=== PATIENT | male | born 1945 | race Two or more races ===

== ENCOUNTER → 2016-06-30 | Outpatient (CLI) | payer MEDICARE ==
[2015-09-14 09:53] VITALS: BP 138/78
[~2016-06-30] MED LIST: ASPI-482 PO; ASPI81TA2 PO; ATOR20TA58 PO; CIPR500T94 PO; DIAZ5TAB PO; LOSA25TA4 PO; METO25TA9 PO; TAMS0.4C2 PO; ZOLP5TAB4 PO
--- NOTE | 2016-06-30 13:32 | KCIC ---
PROCEDURE Bilateral single view AP standing knee HISTORY Chronic bilateral knee stiffness. COMPARISON None FINDINGS Medial and lateral spaces are maintained bilaterally. No evidence of bone destruction. There are some metallic foci overlying the soft tissues of the distal right and left thigh suspicious for foreign bodies. IMPRESSION Medial and lateral joint spaces appear maintained bilaterally. Apparent metallic foreign bodies in the distal right and left thigh. Electronically signed by: Bakari Benoit MD (Jun 30, 2016 13:31:16)
== END | disposition home or self-care (01) ==
LOC: KCIC 12:26
PROVIDERS: ATTEND Physical Medicine & Rehabilitation
DX: M25.662 Stiffness of left knee, not elsewhere classified (principal); M25.661 Stiffness of right knee, not elsewhere classified
CPT/HCPCS: 73565

== ENCOUNTER → 2017-05-22 | Outpatient (CLI) | payer MEDICARE ==
[~2017-05-22] MED LIST changes: -ASPI-482 PO; -ASPI81TA2 PO; -ATOR20TA58 PO; -CIPR500T94 PO; -DIAZ5TAB PO; +IOHEXOL 240 MG/ML 50ML VIAL. PO; -LOSA25TA4 PO; -METO25TA9 PO; -TAMS0.4C2 PO; -ZOLP5TAB4 PO
[2017-05-22] MEDS: IOHEXOL 300 MG/ML 100ML VIAL. IV (11:40)
== END | disposition home or self-care (01) ==
LOC: CT 09:37
DX: I70.0 Atherosclerosis of aorta (principal); M47.896 Other spondylosis, lumbar region; M16.12 Unilateral primary osteoarthritis, left hip; I10 Essential (primary) hypertension; Z96.641 Presence of right artificial hip joint; Z87.891 Personal history of nicotine dependence
CPT/HCPCS: 74177; Q9966; Q9967

== ENCOUNTER → 2017-05-30 | Day surgery (SDC) | payer MEDICARE ==
[~2017-05-30] MED LIST changes: -IOHEXOL 240 MG/ML 50ML VIAL. PO; +LIDOCAINE 1% PF 2 ML VIAL.; +PROPOFOL 20 ML IV
[2017-05-30] MEDS: IV RINGERS,LACTATED 1000ML 1,000 ML IV ×2 (10:05)
[2017-05-30] MEDS: IPRATRPIUM/ALBUTEROL 0.5/2.5MG 3 ML NEBU. NEB ×2 (11:23)
== END | disposition home or self-care (01) ==
LOC: ENDOS 09:24
DX: K21.0 Gastro-esophageal reflux disease with esophagitis (principal); K44.9 Diaphragmatic hernia without obstruction or gangrene; E78.00 Pure hypercholesterolemia, unspecified; I10 Essential (primary) hypertension; M19.90 Unspecified osteoarthritis, unspecified site; F32.9 Major depressive disorder, single episode, unspecified; F17.200 Nicotine dependence, unspecified, uncomplicated; Z88.0 Allergy status to penicillin; Z72.89 Other problems related to lifestyle; Z98.41 Cataract extraction status, right eye; Z98.42 Cataract extraction status, left eye; Z96.641 Presence of right artificial hip joint; Z87.39 Personal history of other diseases of the musculoskeletal system and connective tissue
CPT/HCPCS: 43235; 94640; J2704; J7620

== ENCOUNTER → 2017-08-15 | Outpatient (CLI) | payer MEDICARE | END | disposition home or self-care (01) | LOC: RAD 12:24 | DX: M19.042 Primary osteoarthritis, left hand (principal); M19.041 Primary osteoarthritis, right hand; M81.0 Age-related osteoporosis without current pathological fracture | CPT/HCPCS: 73130 ==

== ENCOUNTER 2021-07-14 19:32 | Emergency (ER) | payer MEDICARE ==
[~2021-07-14] VITALS: Ht 167.6 cm; Wt 93.2 kg
[~2021-07-14 19:32] MED LIST changes: +ASPI-482 PO; +ASPI-630 PO; +ATOR20TA58 PO; +CIPR500T94 PO; +DIAZ5TAB PO; +HYDR-2769 PO; -LIDOCAINE 1% PF 2 ML VIAL.; +LOSA25TA54 PO; +METO-239 PO; -PROPOFOL 20 ML IV; +TAMS0.4C2 PO; +ZOLP5TAB5 PO
--- NOTE | 2021-07-14 20:39 | RAD ---
EXAMINATION: XR ELBOW COMPLETE_RIGHT 3+ VIEWS, XR SHOULDER_RIGHT 2+ VIEWS, XR HUMERUS_RT 2 VIEWS CLINICAL HISTORY: Right upper extremity pain following fall. TECHNIQUE: XR ELBOW COMPLETE_RIGHT 3+ VIEWS, XR SHOULDER_RIGHT 2+ VIEWS, XR HUMERUS_RT 2 VIEWS COMPARISON: None FINDINGS/ IMPRESSION: Questionable proximal humerus fracture in the region of the humeral neck, suboptimally evaluated due to patient positioning and imaging technique. There is otherwise no evidence of acute fracture. Glenohumeral joint poorly evaluated. Acromioclavicular degenerative changes. Mild radiocapitellar and ulnohumeral degenerative changes. Small posterior calcaneal enthesophyte. No focal soft tissue swell ing. No joint effusion at the elbow. Electronically signed by: Demario Davis DO (07/14/2021 8:37 PM) [facility]
--- NOTE | 2021-07-14 20:47 | RAD ---
PQRS Compliance Statement: One or more of the following individualized dose reduction techniques were utilized for this examinat ion: 1. Automated exposure control 2. Adjustment of the mA and/or kV according to patient size 3. Use of iterative reconstruction technique CT HEAD AND CERVICAL SPINE WITHOUT CONTRAST History: Reason: fall down escalator, hit head. Shoulder pain, dislocated./ Comparison: None. Procedure: Axial images are obtained of the head from the skull base through the vertex without IV co ntrast. Noncontrast helical CT of the cervical spine was performed. Axial, sagittal, and coronal rec onstructions were obtained. Findings: The ventricles and sulci are prominent, consistent with generalized cerebral atrophy. There is minim al periventricular white matter hypoattenuation. This is a nonspecific finding but is commonly due t o chronic small vessel ischemic disease in a patient of this age. No mass-effect, midline shift, hemorrhage or obvious acute infarction is identified. Basilar cistern s are patent. Bone windows demonstrate no significant calvarial abnormality. There is mild mucosal thickening left maxillary sinus. No air-fluid level. Mastoid air cells are well aerated. There is no evidence of acute fracture or acute malalignment of the cervical spine. The facet joints are mildly hypertrophic but intact. There is disc space narrowing and degenerative e ndplate spurring of C5/C6 and C6/C7. The vertebral body alignment is maintained. Visualized soft tissues of the neck demonstrate no significant abnormalities. The visualized lung api romelia are clear. IMPRESSION: 1. No acute intracranial abnormality. 2. No acute fracture of the cervical spine. Electronically signed by: Last Villatoro MD (07/14/2021 8:45 PM) [facility]
[2021-07-14 20:52] LABS: BASO # 0.1 x10^3/uL (0.0-0.2); BASO % 1 % (0-3); EOS # 0.2 x10^3/uL (0.0-0.7); EOS % 2 % (0-3); HEMATOCRIT 43.8 % (39.0-53.0); HEMOGLOBIN 14.5 g/dL (13.0-17.5); LYMPH # 2.4 x10^3/uL (1.0-4.8); LYMPH % 21 % (24-48); MEAN CORPUSCULAR HEMOGLOBIN 29 pg (25-35); MEAN CORPUSCULAR HGB CONC 33 g/dL (31-37); MEAN CORPUSCULAR VOLUME 87 fL (79-100); MONO # 1.1 x10^3/uL (0.0-1.1); MONO % 10 % (0-9); NEUT # 7.9 x10^3/uL (1.8-7.7); NEUT % 67 % (31-73); PLATELET COUNT 236 x10^3/uL (140-400); RED BLOOD COUNT 5.06 x10^6/uL (4.30-5.70); RED CELL DISTRIBUTION WIDTH 13.9 % (11.5-14.5); WHITE BLOOD COUNT 11.9 x10^3/uL (4.0-11.0)
[2021-07-14 21:06] LABS: CALCIUM 9.1 mg/dL (8.5-10.1); CREATININE 1.2 mg/dL (0.7-1.3); GFR 58.9; POTASSIUM 4.2 mmol/L (3.5-5.1)
[2021-07-14 21:12] LABS: ALBUMIN 3.3 g/dL (3.4-5.0); ALBUMIN/GLOBULIN RATIO 0.8 (1.0-1.7); MAGNESIUM 2.1 mg/dL (1.8-2.4); TOTAL BILIRUBIN 0.9 mg/dL (0.2-1.0); TOTAL PROTEIN 7.6 g/dL (6.4-8.2)
--- NOTE | 2021-07-14 21:27 | RAD ---
XR CHEST 1V Clinical Indication: Reason: fall /, hit head, shoulder pain. Comparison: None. Findings: The cardiomediastinal silhouette is normal. Lungs are clear. There is no pneumothorax. No pleural eff usion is appreciated. There is acute traumatic minimally displaced fracture of the surgical neck of t he right humerus. IMPRESSION: 1. No acute cardiopulmonary process. 2. Acute fracture of the proximal right humerus. Electronically signed by: Last Villatoro MD (07/14/2021 9:25 PM) [facility]
[2021-07-14] MEDS ORDERED: fentaNYL PF VIAL 100 MCG/2 ML VIAL IVP ONE (21:45)
--- NOTE | 2021-07-14 21:53 | RAD ---
Exam: CT right humerus without contrast INDICATION: Right shoulder pain TECHNIQUE: Sequential axial images through the humerus obtained without IV contrast. Sagittal and cor onal reformatted images were reconstructed from the axial data and reviewed. Exposure: One or more of the following in the visualized dose reduction techniques were utilized for this examination: 1. Automated exposure control 2. Adjustment of the MA and/or KV according to patient size 3. Use of iterative of reconstructive technique Comparisons: Radiograph same day FINDINGS: There is a impacted right humerus neck fracture. Joint spaces are well-maintained. Hemorrhagic produc ts noted in the soft tissues surrounding the fracture site. No other fractures are seen. 8mm nodule right lower lobe series 2 image 81. IMPRESSION: 1. Impacted right humeral neck fracture. 2. An 8 mm nodule in the right upper lobe. Nonemergent dedicated chest CT recommended to further oneil langford. Electronically signed by: Griselda Espinal MD (07/14/2021 9:51 PM) [facility]
--- NOTE | 2021-07-14 22:05 | PHYS DOC ---
Past Medical History Past Medical History: Anxiety, Hypertension Past Surgical History: Hip Replacement Additional Past Surgical Histo: careract, carpaltunnel General Adult EDM: Chief Complaint: MECHANICAL FALL HPI: HPI: Patient is a 76 year old male with history of prostate cancer currently not on treatment, hypertension, anxiety, presenting today to be evaluated after having 2 falls. Patient's is doing most of the speaking. [place], he fell down while going up an escalator. Patient states he landed on his right shoulder. Patient denies any loss of consciousness. Denies hitting his head. Denies any neck pain. also state on Monday patient fell out of the bed. She was not able to get patient off the ground so they called 911 for a lift assist,patient refused to come to the hospital. Patient presents to the ED today complaining of right shoulder pain, right elbow pain, rates the pain as 10 out of 10, states the pain is sharp and constant. Denies anything relieving the pain but states range of motion exacerbates the pain. Patient denies hitting his head on the ground when he fell at home. Denies any alcohol intake when he fell Review of Systems: Review of Systems: Constitutional: Denies fever or chills. [] Eyes: Denies change in visual acuity. [] HENT: Denies nasal congestion or sore throat. [] Respiratory: Denies cough or shortness of breath. [] Cardiovascular: Denies chest pain or edema. [] GI: Denies abdominal pain, nausea, vomiting, bloody stools or diarrhea. [] : Denies dysuria. [] Musculoskeletal: Reports right shoulder, right elbow pain. Denies any neck pain, mid or low back pain, denies any hip pain Integument: Denies rash. [] Neurologic: Denies headache, focal weakness or sensory changes. [] Psychiatric: Denies depression or anxiety. [] Heart Score: C/O Chest Pain: N/A Risk Factors: Risk Factors: DM, Current or recent (<one month) smoker, HTN, HLP, family history of CAD, obesity. Risk Scores: Score 0 - 3: 2.5% MACE over next 6 weeks - Discharge Home Score 4 - 6: 20.3% MACE over next 6 weeks - Admit for Clinical Observation Score 7 - 10: 72.7% MACE over next 6 weeks - Early Invasive Strategies Current Medications: Current Medications Medications (Trade) Dose Ordered Sig/Ethan Start Time Stop Time Status Last Admin Dose Admin Fentanyl Citrate (Fentanyl 2ml Vial) 50 mcg 1X ONCE 07/14/21 21:45 07/14/21 21:46 DC Allergies: Allergies: Allergies Coded Allergies Type Severity Reaction Last Updated Verified Penicillins Allergy Severe Swelling 05/30/17 No Physical Exam: PE: Constitutional: Well developed, well nourished, no acute distress, non-toxic appearance. [] HENT: Normocephalic, atraumatic, bilateral external ears normal, oropharynx moist, no oral exudates, nose normal. [] Eyes: PERRLA, EOMI, conjunctiva normal, no discharge. [] Neck: Normal range of motion, no tenderness, supple, no stridor. [] Cardiovascular:Heart rate regular rhythm, no murmur [] Lungs & Thorax: Bilateral breath sounds clear to auscultation [] Abdomen: Bowel sounds normal, soft, no tenderness, no masses, no pulsatile masses. [] Skin: Warm, dry, no erythema, no rash. [] Back: No tenderness, no CVA tenderness. [] Extremities: Bruising noted on the right shoulder, right humerus, right elbow, right shoulder is internally rotated, very limited range of motion to the right shoulder, full passive range of motion to the right elbow, full active range of motion to the right hand and fingers, adequate radial, medial, ulnar sensation to the right upper extremity. +2 right radial pulse. Cap refill less than 2 seconds to right fingers. Neurologic: Alert and oriented X 3, normal motor function, normal sensory function, no focal deficits noted. Cranial nerves II through XII intact Psychologic: Flat affect, slow speech though states this is his baseline Current Patient Data: Labs: Laboratory Tests Test 07/14/21 20:44 White Blood Count 11.9 x10^3/uL (4.0-11.0) H Red Blood Count 5.06 x10^6/uL (4.30-5.70) Hemoglobin 14.5 g/dL (13.0-17.5) Hematocrit 43.8 % (39.0-53.0) Mean Corpuscular Volume 87 fL (79-100) Mean Corpuscular Hemoglobin 29 pg (25-35) Mean Corpuscular Hemoglobin Concent 33 g/dL (31-37) Red Cell Distribution Width 13.9 % (11.5-14.5) Platelet Count 236 x10^3/uL (140-400) Neutrophils (%) (Auto) 67 % (31-73) Lymphocytes (%) (Auto) 21 % (24-48) L Monocytes (%) (Auto) 10 % (0-9) H Eosinophils (%) (Auto) 2 % (0-3) Basophils (%) (Auto) 1 % (0-3) Neutrophils # (Auto) 7.9 x10^3/uL (1.8-7.7) H Lymphocytes # (Auto) 2.4 x10^3/uL (1.0-4.8) Monocytes # (Auto) 1.1 x10^3/uL (0.0-1.1) Eosinophils # (Auto) 0.2 x10^3/uL (0.0-0.7) Basophils # (Auto) 0.1 x10^3/uL (0.0-0.2) Sodium Level 138 mmol/L (136-145) Potassium Level 4.2 mmol/L (3.5-5.1) Chloride Level 102 mmol/L (98-107) Carbon Dioxide Level 28 mmol/L (21-32) Anion Gap 8 (6-14) Blood Urea Nitrogen 15 mg/dL (8-26) Creatinine 1.2 mg/dL (0.7-1.3) Estimated GFR (Cockcroft-Gault) 58.9 BUN/Creatinine Ratio 13 (6-20) Glucose Level 99 mg/dL (70-99) Calcium Level 9.1 mg/dL (8.5-10.1) Magnesium Level 2.1 mg/dL (1.8-2.4) Total Bilirubin 0.9 mg/dL (0.2-1.0) Aspartate Amino Transferase (AST) 35 U/L (15-37) Alanine Aminotransferase (ALT) 24 U/L (16-63) Alkaline Phosphatase 71 U/L (46-116) Troponin I High Sensitivity 28 ng/L (4-75) BW-Yki-R-Type Natriuretic Peptide 948 pg/mL (0-449) H Total Protein 7.6 g/dL (6.4-8.2) Albumin 3.3 g/dL (3.4-5.0) L Albumin/Globulin Ratio 0.8 (1.0-1.7) L Thyroid Stimulating Hormone (TSH) 0.916 uIU/mL (0.358-3.74) Ethyl Alcohol Level < 10 mg/dL (0-10) Laboratory Tests 07/14/21 20:44 Laboratory Tests 07/14/21 20:44 Vital Signs: Vital Signs Date Time Temp Pulse Resp B/P (MAP) Pulse Ox O2 Delivery O2 Flow Rate FiO2 07/14/21 19:45 98.3 100 20 123/68 (86) 95 Room Air 98.3 EKG: EK interpreted by Dr. Scott sinus rhythm, nonspecific ST elevations no STEMI Radiology/Procedures: Radiology/Procedures: []PROCEDURE: CT HEAD AND CERVICAL SPINE WO RS Compliance Statement: One or more of the following individualized dose reduction techniques were utilized for this examination: 1. Automated exposure control 2. Adjustment of the mA and/or kV according to patient size 3. Use of iterative reconstruction technique CT HEAD AND CERVICAL SPINE WITHOUT CONTRAST History: Reason: fall down escalator, hit head. Shoulder pain, dislocated./ Comparison: None. Procedure: Axial images are obtained of the head from the skull base through the vertex without IV contrast. Noncontrast helical CT of the cervical spine was performed. Axial, sagittal, and coronal reconstructions were obtained. Findings: The ventricles and sulci are prominent, consistent with generalized cerebral atrophy. There is minimal periventricular white matter hypoattenuation. This is a nonspecific finding but is commonly due to chronic small vessel ischemic disease in a patient of this age. No mass-effect, midline shift, hemorrhage or obvious acute infarction is identified. Basilar cisterns are patent. Bone windows demonstrate no significant calvarial abnormality. There is mild mucosal thickening left maxillary sinus. No air-fluid level. Mastoid air cells are well aerated. There is no evidence of acute fracture or acute malalignment of the cervical spine. The facet joints are mildly hypertrophic but intact. There is disc space narrowing and degenerative endplate spurring of C5/C6 and C6/C7. The vertebral body alignment is maintained. Visualized soft tissues of the neck demonstrate no significant abnormalities. The visualized lung apices are clear. IMPRESSION: 1. No acute intracranial abnormality. 2. No acute fracture of the cervical spine. Electronically signed by: Last Villatoro MD (07/14/2021 8:45 PM) [facility] DICTATED and SIGNED BY: LAST VILLATORO MD DATE: 07/14/212036 PROCEDURE: CT UPPR EXTREMTY WO CONTRST RT Exam: CT right humerus without contrast INDICATION: Right shoulder pain TECHNIQUE: Sequential axial images through the humerus obtained without IV contrast. Sagittal and coronal reformatted images were reconstructed from the axial data and reviewed. Exposure: One or more of the following in the visualized dose reduction techniques were utilized for this examination: 1. Automated exposure control 2. Adjustment of the MA and/or KV according to patient size 3. Use of iterative of reconstructive technique Comparisons: Radiograph same day FINDINGS: There is a impacted right humerus neck fracture. Joint spaces are well- maintained. Hemorrhagic products noted in the soft tissues surrounding the fracture site. No other fractures are seen. 8mm nodule right lower lobe series 2 image 81. IMPRESSION: 1. Impacted right humeral neck fracture. 2. An 8 mm nodule in the right upper lobe. Nonemergent dedicated chest CT recommended to further evaluate. Electronically signed by: Griselda Zuniga MD (07/14/2021 9:51 PM) [facility] DICTATED and SIGNED BY: GRISELDA ZUNIGA MD DATE: 07/14/212138 PROCEDURE: PORTABLE CHEST 1V XR CHEST 1V Clinical Indication: Reason: fall /, hit head, shoulder pain. Comparison: None. Findings: The cardiomediastinal silhouette is normal. Lungs are clear. There is no pneumothorax. No pleural effusion is appreciated. There is acute traumatic minimally displaced fracture of the surgical neck of the right humerus. IMPRESSION: 1. No acute cardiopulmonary process. 2. Acute fracture of the proximal right humerus. Electronically signed by: Last Villatoro MD (07/14/2021 9:25 PM) [facility] DICTATED and SIGNED BY: LAST VILLATORO MD DATE: 07/14/212122 PROCEDURE: HUMERUS RIGHT EXAMINATION: XR ELBOW COMPLETE_RIGHT 3+ VIEWS, XR SHOULDER_RIGHT 2+ VIEWS, XR HUMERUS_RT 2 VIEWS CLINICAL HISTORY: Right upper extremity pain following fall. TECHNIQUE: XR ELBOW COMPLETE_RIGHT 3+ VIEWS, XR SHOULDER_RIGHT 2+ VIEWS, XR HUMERUS_RT 2 VIEWS COMPARISON: None FINDINGS/ IMPRESSION: Questionable proximal humerus fracture in the region of the humeral neck, suboptimally evaluated due to patient positioning and imaging technique. There is otherwise no evidence of acute fracture. Glenohumeral joint poorly evaluated. Acromioclavicular degenerative changes. Mild radiocapitellar and ulnohumeral degenerative changes. Small posterior calcaneal enthesophyte. No focal soft tissue swelling. No joint effusion at the elbow. Electronically signed by: Adriel Callaway DO (07/14/2021 8:37 PM) [facility] DICTATED and SIGNED BY: ADRIEL CALLAWAY DO DATE: 07/14/212031 PROCEDURE: ELBOW RIGHT 3V EXAMINATION: XR ELBOW COMPLETE_RIGHT 3+ VIEWS, XR SHOULDER_RIGHT 2+ VIEWS, XR HUMERUS_RT 2 VIEWS CLINICAL HISTORY: Right upper extremity pain following fall. TECHNIQUE: XR ELBOW COMPLETE_RIGHT 3+ VIEWS, XR SHOULDER_RIGHT 2+ VIEWS, XR HUMERUS_RT 2 VIEWS COMPARISON: None FINDINGS/ IMPRESSION: Questionable proximal humerus fracture in the region of the humeral neck, suboptimally evaluated due to patient positioning and imaging technique. There is otherwise no evidence of acute fracture. Glenohumeral joint poorly evaluated. Acromioclavicular degenerative changes. Mild radiocapitellar and ulnohumeral degenerative changes. Small posterior calcaneal enthesophyte. No focal soft tissue swelling. No joint effusion at the elbow. Electronically signed by: Adriel Callaway DO (07/14/2021 8:37 PM) [facility] DICTATED and SIGNED BY: ADRIEL CALLAWAY DO DATE: 07/14/212031 Course & Med Decision Making: Course & Med Decision Making Pertinent Labs and Imaging studies reviewed. (See chart for details) This is a 76-year-old male patient presenting to the ED today complaining of right shoulder and right elbow pain, symptoms began after falling twice. [place] and also fell on Monday from his bed. CT of the head and cervical spine are negative. CT of the right shoulder noted for right humeral neck fracture, right elbow x-rays are negative for any acute findings Considering this patient has had 2 falls, admission was recommended. Patient refused to be admitted and signed out AMA. He is alert oriented x4 and able to make his own decisions, I gave patient the risk of leaving AMA including , disability, another injury. His was present and stated this is patient's normal behavior where he can come to the hospital and refuse to stay. I provided him an orthopedic doctor to call tomorrow morning and follow-up. He was put in a sling by the ED RN, neurovascular exam done by me is normal post sling application is normal Didi Disclaimer: Dragon Disclaimer: This electronic medical record was generated, in whole or in part, using a voice recognition dictation system. Departure Departure Impression: Primary Impression: Fall Qualified Codes: W19.XXXA - Unspecified fall, initial encounter Additional Impression: Fracture of neck of right humerus Qualified Codes: S42.211A - Unspecified displaced fracture of surgical neck of right humerus, initial encounter for closed fracture Disposition: LEFT AGAINST MEDICAL ADVICE Condition: STABLE Referrals: BASHIR CHASE MD (PCP) ELENI MENDOZA II, MD Call his office tomorrow morning and set up a follow-up appointment Patient Instructions: Humerus Fracture, Treated with Immobilization Additional Instructions: You have right humerus neck fracture, we offered you admission to the hospital but he refused. We highly recommend you contact the orthopedic doctor provided tomorrow morning and set up a follow-up appointment. MIKKI RICKETTS APRN Jul 14, 2021 22:05
[2021-07-14 22:17] VITALS: BP 127/77
--- NOTE | 2021-07-15 07:54 | EKG ---
[facility] [address] [place] [address] Test Date: 2021-07-14 Test Time: 20:37:11 Pat Name: AUSTIN JOSEPH Department: Room: Gender: M Cd Reactor Operator: : [id number] Requested By: MIKKI RICKETTS Order Number: [id number] Reading MD: Measurements Intervals [place] Rate: 100 P: 103 MD: 188 QRS: 15 QRSD: 104 T: 176 QT: 380 QTc: 494 Interpretive Statements SINUS RHYTHM VENTRICULAR PREMATURE COMPLEX(ES) ATRIAL PREMATURE COMPLEX(ES) QRS(T) CONTOUR ABNORMALITY CONSISTENT WITH ANTEROSEPTAL INFARCT PROBABLY OLD ABNORMAL ECG RI6.02 No previous ECG available for comparison
== END 2021-07-14 22:24 | disposition left against medical advice (07) ==
LOC: ER 19:32
DX: S42.211A Unspecified displaced fracture of surgical neck of right humerus, initial encounter for closed fracture (principal); M25.521 Pain in right elbow; I10 Essential (primary) hypertension; Z85.46 Personal history of malignant neoplasm of prostate; Z88.0 Allergy status to penicillin; W10.0XXA Fall (on)(from) escalator, initial encounter; Y93.89 Activity, other specified; Y92.89 Other specified places as the place of occurrence of the external cause; Y99.8 Other external cause status
CPT/HCPCS: 36415; 70450; 71045; 72125; 73030; 73060; 73080; 73200; 80053; 83735; 83880; 84443; 84484; 85025; 93005; 96374; 99285; G0480; J3010